=== PATIENT | male | born 1975 | race Caucasian/White ===

== ENCOUNTER 2022-10-19 13:30 | Outpatient (RCR) | payer BC, SELFPAY ==
[2022-10-18] MEDS: ERTAPENEM 1 GM in 0.9 % SODIUM CHLORIDE Mini-bag 100 ML IVPB (13:28)
[2022-10-19 13:50] VITALS: BP 123/84; PULSE 91; RESP 16; TEMP 36.4; O2SAT 97
[2022-10-19] MEDS: ERTAPENEM 1 GM in 0.9 % SODIUM CHLORIDE Mini-bag 100 ML IVPB (14:12)
== END 2023-04-16 23:59 | disposition home or self-care (01) ==
LOC: CCIC 13:30
PROVIDERS: PCP Family Medicine; Referring Provider Family Medicine; Visit Provider Family Medicine
DX: K57.32 Diverticulitis of large intestine without perforation or abscess without bleeding (principal)
CPT/HCPCS: 96365; J1335

== ENCOUNTER 2024-11-26 11:23 | Emergency (ER) | payer BC, SELFPAY ==
--- OUTSIDE RECORDS SUMMARY | 2024-11-26 11:26 | XMS_ITS | Clinical Summary ---
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 For routine questions regarding patient records, call [phone] during business hours, M-F 8:00 AM - 5:00 PM Central Time. 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) Alcohol Remission 12/27/2017 Fatty Liver 12/27/2017 Cholecystectomy Laparoscopic Status Post 018 Social History Tobacco Use Types Packs/Day Years Used Date Smoking Tobacco: Former Smokeless Tobacco: Current Chew Alcohol Use Standard Drinks/Week Comments No 0 (1 standard drink = 0.6 oz pur e alcohol) Sex and Gender Information Value Date Recorded Sex Assigned at Not on file Legal Sex Male 3:28 PM CDT Gender Identity Male 10/31/2017 12:42 PM CDT Sexual Orientation Straight 10/31/2017 12 :42 PM CDT Last Filed Vital Signs Vital Sign Reading Time Taken Comments Blood Pressure 127/80 01/03/2018 12:49 PM CDT Pulse 72 01/03/2018 12:48 PM CDT Temperature 36.6 C (97.9 F) 01/03/2018 12:48 PM CDT Respiratory Rate 16 01/03/2018 12:49 PM CDT Oxygen Saturation 98% 01/03/2018 12:48 PM CDT Inhaled Oxygen Concentration - - Weight 129 kg (285 lb 4.4 oz) 12/27/2017 3:15 PM CDT Height 176.6 cm (5' 9.53) 12/27/2017 3:15 PM CD T Body Mass Index 41.49 12/27/2017 3:15 PM CDT Plan of Treatment Health Maintenance Due Date Last Done Comments CT Colonography 1976 Cologuard 1976 Colonoscopy 1976 Colorectal Cancer Screening 1976 FIT 1976 HIV Screening 1976 Hepatitis C Screening 1976 Lipid (Cholesterol) Screening 1976 Hepatitis B Vaccines (1 of 3 - 19+ 3-dose series) 01/14/1995 Pneumococcal vaccine (0-49 years) (2 of 2 - PCV) 11/20/2017 11/20/2016 DTaP,Tdap,and Td Vaccines (2 - Td or Tdap) 02/11/2018 02/12/2008 Fasting Glucose for Diabetes Screening 01/02/2021 01/02/2018, 01/02/2018 COVID-19 Vaccine (3 - 2023-2 5 season) 2024 02/12/2021, 2021 Depression Screening (Annual PHQ-2) 05/22/2024 Influenza Vaccine (#1) 2025 , 05/30/2013, 05/09/2010 IPV Vaccines Aged Out No longer eligi ble based on patient's age to complete this topic Medical Devices Implanted Type Area Respiratory Coordinator Device Identifier Shelf Expiration Date Model / Serial / Lot Shoulder Implant Shoulder Implant Shoulder Procedures Procedure Name Priority Date/Time Associated Diagnosis Comments HEMOGLOBIN A1C, B Routine 01/02/2018 11: 48 AM CDT Pain Epigastric from Last 3 Months or Most Recently Relevant to Health Maintenance Results * Hemoglobin A1c (01/02/2018 11:48 AM CDT) Hemoglobin A1c, B 5.1 4.0 - 5.6 % 01/02/2018 1:04 PM CDT [facility] Blood (Blood, Venous) 01/02/2018 11:48 AM CDT 01/02/2018 12:07 PM CDT us Bharat Wright M.D. LAB BLOOD ADD-ON Final Resu lt [facility] [address] from Last 3 Months or Most Recently Relevant to Health Maintenance Insurance [employer]
--- OUTSIDE RECORDS SUMMARY | 2024-11-26 11:26 | XMS_ITS | Clinical Summary ---
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 Max acetaminophen dose: 4000mg in 24 hrs. Active Active Problems Problem Noted Date Diagnosed Date Sepsis 08/09/2020 Troponin level elevated 08/09/[address] scan, esophagus 08/09/2020 Overview (08/09/2020): Noted on CT scans in July 2020, stable from 2016 Alcohol dependence in remission 12/27/2017 Morbid obesity 12/27/2017 Pancreatitis, acute 12/27/2017 Fatty liver 12/27/2017 Diverticulitis of colon 12/27/2017 Acquired absence of other sp ecified parts of digestive tract 12/27/2017 Recurrent shoulder dislocation, left Immunizations Immunization Administration Dates Next Due Influenza, IIV3 (Age 6-35 mos) 05/30/2013 Influenza, IIV3 (Age >=3 years) 05/09/2010 Pneumococcal Poly,23-Valent (Pneumovax) 11/21/19 17 Tdap 02/12/2008 Family History Medical History Relation Name Comments Diverticulitis Maternal Grandmother Diverticulitis Mother Heart attack Paternal Grandmother Relation Name Status Comments Maternal Grandmother Mother Paternal Grandmother Social History Tobacco Use Types Packs/Day Years Used Date Smoking Tobacco: Unknown Smokeless Tobacco: Current Chew Tobacco Cessation:Ready to Q uit: No; Counseling Given: Yes Social Connections Answer Date Recorded Frequency of Communication with Friends and Fami ly Not on file 06/14/2021 Financial Resource Strain Answer Date R ecorded Difficulty of Paying Living Expenses Not on file 06/14/2021 Difficulty of Paying Living Expenses Not on file 06/14/2021 Sex and Gender Information Value Date Recorded Sex Assigned at Not on file Legal Sex Male 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 Gender Identity Not on file Sexual Orientation Not on file Obstetrics History Last Filed Vital Signs Vital Sign Reading Time Taken Comments Blood Pressure 155/94 06/14/2021 9:27 AM SENIOR ORACLE DATABASE DEVELOPER Pulse 94 06/14/2021 9:27 AM SENIOR ORACLE DATABASE DEVELOPER Temperature 36.7 C (98.1 F) 08/13/2020 8:24 AM CDT Respiratory Rate 16 08/13/2020 8:24 AM CDT Oxygen Saturation 96% 06/14/2021 9:27 AM SENIOR ORACLE DATABASE DEVELOPER Inhaled Oxygen Concentration - - Weight 129.8 kg (286 lb 3.2 oz) 06/14/2021 9:27 AM SENIOR ORACLE DATABASE DEVELOPER Height 177.8 cm (5' 10) 06/14/2021 9:27 AM SENIOR ORACLE DATABASE DEVELOPER Body Mass Index 41.07 06/14/2021 9:27 AM SENIOR ORACLE DATABASE DEVELOPER Plan of Treatment Health Maintenance Due Date Last Done Comments Depression screening for age 12+ 1988 HIV for age 15-65 01/14/1991 Hepatitis B series for 19+ ( 1 of 3 - 19+ 3-dose series) 01/14/1995 Tetanus booster 02/11/2018 02/12/2008 Colonoscopy through age 75 01/14/2021 Lipids for age 45-75 01/14/2021 BMI (ht and wt on same day) for age 18+ 06/14/2022 06/14/2021 COVID-19 vaccine series (2023- season) 2024 Influenza Vaccine (#1) 2025 4, 05/09/2010 Pneumococcal series for age 6-49 Aged Out 11/20/2016 No longer eligible b ased on patient's age to complete this topic Hepatitis C screening for ag e 18-79 Completed 08/12/2020 Procedures Procedure Name Priority Date/Time Associated Diagnosis Comments ACUTE HEPATITIS PANEL JACKELINE 08/12/2020 7:52 AM CDT from Last 3 Months or Most Recently Relevant to Health Maintenance Results * Acute hepatitis panel TODAY (08/12/2020 7:52 AM CDT) HEPATITIS C ANTIBODY Non-Reactive Non-Reactive 08/12/2020 4:11 PM CDT [facility] Comment:Antibodies to HCV no t detected; does not exclude the possibility of exposure to HCV. IGM ANTI HAV Non-Reactive Non-Reactive 08/13/19 4:11 PM CDT [facility] HBSAG Nonreactive Nonreactive 08/12/2020 4:11 PM CDT [facility] IGM ANTI HBC Non-Reactive Non-Reactive 08/13/19 4:11 PM CDT [facility] Blood BLOOD SPECIMEN / Unknown Venipuncture / Unknown 08/12/2020 7:52 AM CDT 08/12/2020 7:59 AM CDT Narrative [facility] - 08/12/2020 4:11 PM CDT Anti-HAV IgM not detected. Does not exclude the possibility of exposure to/or infection with HAV. Level of anti-HAV IgM may be below the cut-off in early infection. us Cornell Rivera MD SEND OUTS Final Result [facility] [address] [place] [address], [place] from Last 3 Months or Most Recently Relevant to Health Maintenance Insurance [employer] Advance Directives * Full Code (Latest Code Status on File) Date Activated Date Inactivated Comments 08/09/2020 1:58 PM 08/13/2020 2:46 PM Question Answer Comments Code Status Discussion: Discussed Care Teams Silverware Cleaner Relationship Specialty Start Date End Date Pcp, No . PCP - General 08/09/20
[2024-11-26 11:36] VITALS: BP 154/89; PULSE 87; RESP 20; TEMP 36.7; O2SAT 93; BMI 39.3
--- NOTE | 2024-11-26 12:57 | ED.GENADULT ---
HPI - General Adult General Date Seen: 11/26/24 Chief complaint: Shortness of Breath/Dyspnea Stated complaint: shortness of breath, tightness on chest, weak Time Seen by Provider: 11/26/24 12:42 History of Present Illness HPI narrative: 49 yo M presenting to the ER today for shortness of breath. He has been feeling short of breath for about 2 weeks but has more shortness of breath today. He says he just feels like he can not get enough air even though he has no trouble getting breath been out of his lungs. He is also generalized weak, unable to exercise. Trouble sleeping. He also feels tightness in his neck and throat. No cough. No fever. He has a past medical history of diverticulitis, seen here in the ER for that a couple of years ago. He has had symptoms of shortness of breath ongoing for the past 2 or 3 weeks and getting steadily worse over time. He is not having any chest pain really or pain with breathing but sometimes he just feels like he can not get enough air. In particular his breathing can be worse at night, but it is not always triggered by night or by supine position. He has also had just general fatigue, exercise intolerance. He has not had any swelling in his legs but he has noted a little bit of a brownish macular rash affecting both his distal shins and ankles for the past month or 2. At 1st he thought the rash might be a sunburn, but it is slowly spreading over time without sun exposure. No other rashes. Is not have any cough. No she needs nasal congestion. No sore throat. No fever or chills. No abdominal pain. He is not gaining or losing weight. No vomiting or diarrhea. Call swollen no black or bloody stools. No nosebleeds. He is not anticoagulated. He does travel a lot for work. Will give no other long-term immobility. No history of DVT or PE. Per the [facility] medical record through [employer] link I see that he has a past medical history elevated BMI, morbid obesity, pancreatitis due to gallstones, status post cholecystectomy in 2019, history of heavy alcohol use, in remission per doctor's notes from 2021, elevated troponin, sepsis, shoulder dislocation, fatty liver. He also reports a long history of GERD is even had previous off the snf dilatations. Most of his GERD symptoms have gone away since he stopped drinking alcohol a few years ago. He is no longer regularly on PPIs or other acid. He really does not feel like he has been having any of his previous ?GERD? symptoms recent. He tried taking acid medicine for a day but it did not change the breathing symptoms. He tried fasting for a day but that did not change the breathing symptoms. He also has a history of 1 panic attack. He notes that occurred several years ago when his was with her 3rd child. He does not have any reason for the call stressors or anxiety in his life. He has never needed long-term anxiety medications Related Data Home Medications ?Medication ?Instructions ?Recorded ?Confirmed Tylenol 10/17/22 ibuprofen 10/17/22 Allergies Allergy/AdvReac Type Severity Reaction Status Date / Time Latex, Natural Rubber Allergy Blister Verified 11/26/24 11:44 [facility] Social History Smoking Status: Never smoker Do you use any of these nicotine containing products: Smokeless Tobacco How often do you have a drink containing alcohol: 2-4 times a month How many standard drinks containing alcohol do you have on a typical day: 1 or 2 AUDIT-C Alcohol total score: 2 Non-prescribed substance use: denies use Exam Narrative: Exam Narrative: Constitutional: Appears well-developed and well-nourished. Alert. Conversant. Non toxic. HENT: Head: Atraumatic. Nose: Nose normal. Mouth/Throat: Oral mucosa is clear and moist. no trismus. Pharynx normal. Tonsils symmetric. No tonsillar enlargement, erythema, or exudate. Eyes: Conjunctivae normal. EOM normal. Pupils equal, round, and reactive to light. No scleral icterus. Neck: Normal range of motion. Neck supple. No tracheal deviation present. No JVD Cardiovascular: Normal rate, regular rhythm. No gallop. No friction rub. No murmur heard. Symmetric radial and PT artery pulses Pulmonary/Chest: Effort normal. No stridor. No respiratory distress. No wheezes. No rales. No rhonchi . No tenderness. Abdominal: Soft. No distension. No mass. No tenderness. No rebound. No guarding. Musculoskeletal: RUE: Normal range of motion. No tenderness. No deformity LUE: Normal range of motion. No tenderness. No deformity RLE: Normal range of motion. No edema. No tenderness. No deformity LLE: Normal range of motion. No edema. No tenderness. No deformity Neurological: Alert and oriented to person, place, and time. Normal strength. CN II-VII intact. No sensory deficit. GCS eye subscore is 4. GCS verbal subscore is 5. GCS motor subscore is 6. Normal coordination Skin: Skin is warm and dry. No rash noted. No pallor. Normal capillary refill. Psychiatric: Normal mood. Normal affect. Const: Vital Signs, click to edit/add: Vital Signs - 24 hr 11/26/24 11:36 11/26/24 13:25 11/26/24 15:50 Temperature 98.0 F Pulse Rate [Pulse Oximeter] 87 62 66 Respiratory Rate 20 20 16 Blood Pressure [Ri ght Upper Arm] 154/89 H 139/94 H 141/89 H Pulse Oximetry 93 97 96 Oxygen Delivery Me thod Room Air Room Air Room Air Course Vital Signs Vital signs: Initial Vital Signs Temperature 98.0 F 11/26/24 11:36 Temperature Source Temporal Artery Scan 11/26/24 11:36 Pulse Rate 87 11/26/24 11:36 Respiratory Rate 20 11/26/24 11:36 Blood Pressure 154/89 H 11/26/24 11:36 Blood Pressure Mean 110 H 11/26/24 11:36 Blood Pressure Position Sitting 11/26/24 11:36 Pulse Oximetry 93 11/26/24 11:36 Oxygen Delivery Method Room Air 11/26/24 11:36 Vital Signs Temperature 98.0 F 11/26/24 11:36 Pulse Rate 87 11/26/24 11:36 Respiratory Rate 20 11/26/24 11:36 Blood Pressure 154/89 H 11/26/24 11:36 Pulse Oximetry 93 11/26/24 11:36 Oxygen Delivery Method Room Air 11/26/24 11:36 Temperature 98.0 F 11/26/24 11:36 Pulse Rate 66 11/26/24 15:50 Respiratory Rate 16 11/26/24 15:50 Blood Pressure 141/89 H 11/26/24 15:50 Pulse Oximetry 96 11/26/24 15:50 Oxygen Delivery Method Room Air 11/26/24 15:[address] [facility] Narrative Medical decision making narrative: This patient presents to the ER today for evaluation of shortness of breath that has been occurring for the past 2 or 3 weeks. It is more prominent at night but does happen during the day as well and comes and goes in waves. Differential was broad. No evidence of palpitations, syncope or other cardiac dysrhythmia. We considered possible ACS, however workup with EKG and troponin is negative. HEART score is 1. Given time since onset of symptoms, I do not think the patient needs to be admitted for further sets of enzymes. EKG shows no evidence for pericarditis. Clinical presentation not suggestive of myocarditis. Chest x-ray shows no evidence for pneumonia, pneumothorax, pulmonary edema, pleural effusion, rib fracture, cardiomegaly. Mediastinum is normal on the x-ray. The patient has no ripping or tearing pain through to the back and has symmetric pulses on exam, no other acute neuro findings so I doubt aortic dissection. Risk of radiation and contrast exposure would outweigh the benefit of CT angiogram. We considered PE for this patient. Screening D-dimer is normal No wheezing or bronchospasm to suggest COPD/asthma. He is not anemic. No signs of lower extremity DVT. Patient notes that he has had a history of esophagitis and esophageal problems in the back. It is certainly possible that he could be having some reflux which is causing some burning in the back of his throat at night causing the squeezing feeling. He also notes in the past that he has had a panic attack. He denies any recent stressors. He wonders if anxiety could be contributing to his current symptoms. With reasonable clinical confidence, I think the patient is safe for outpatient follow up. Discussed return precautions. Questions answered. Patient voices comfort with the plan. Lab Data Labs: Lab Results 11/26/24 11/26/24 11/26/24 Range/Units 11:46 13:40 Unknown WBC 8.57 (4.50-11.00) K/uL RBC 5.16 (4.30-5.90) m/uL Hgb 16.4 (13.5-17.5) gm/dL Hct 47.2 (37.0-53.0) % MCV 92 (80-100) fL MCH 32 (26-34) pg MCHC 35 (32-36) gm/dL RDW Coeff of Lorraine 11.9 (11.5-15.5) % Plt Count 198 (140-440) K/uL Neut % (Auto) 77.2 H (42.0-72.0) % Lymph % (Auto) 13.1 L (20-44) % [place] % (Auto) 6.2 (0.0-11.0) % Eos % (Auto) 2.1 (0.0-7.0) % Baso % (Auto) 0.2 (0.0-3.0) % Neut # (Auto) 6.60 (1.7-7.0) K/uL Lymph # (Auto) 1.10 (0.90-2.90) K/uL [place] # (Auto) 0.50 (0.00-0.90) K/UL Eos # (Auto) 0.18 (0.00-0.50) K/uL Baso # (Auto) 0.02 (0.00-0.30) K/uL Abs Immat Gran (auto) 0.10 (0.00-0.30) K/uL Imm/Tot Granulo (auto) 1.2 % D-Dimer Quant (PE/DVT) 0.26 (0.00-0.50) ug/ml Sodium 138 (135-149) mmol/L Potassium 4.2 (3.6-5.1) mmol/L Chloride 101 (96-114) mmol/L Carbon Dioxide 28 (20-32) mmol/L Anion Gap 9 (7-15) mEq/L BUN 14 (5-24) mg/dL Creatinine 0.9 (0.5-1.5) mg/dL Estimated Creat Clear 100.38 Estimated GFR 105 ml/min Glucose 100 (60-115) mg/dL Calcium 9.7 (8.4-10.6) mg/dL Troponin I < 0.01 (0.01-0.04) ng/mL NT-Pro-B Natriuret Pep 70 (See Note) pg/mL Urine Color Yellow (Yellow) Urine Appearance Clear (Clear) Urine pH 6.0 (5.0-8.5) Ur Specific [place] 1.020 (1.000-1.030) Urine Protein Negative (Negative) Urine Glucose (UA) Negative (Negative) Urine Ketones Negative (Negative) Urine Blood Negative (Negative) Urine Nitrite Negative (Negative) Urine Bilirubin Negative (Negative) Urine Urobilinogen 0.2 (0.2-1.0) Ur Leukocyte Esterase Negative (Negative) Urine RBC 0-2 (0-2) Urine WBC 0-2 (0-5) Ur Squamous Epith Cells None (None-Few) Urine Bacteria None (None) SARS-CoV-2 (PCR) Negative SARS-CoV-2 (Negative) Influenza Type A (PCR) Negative PCR FLU A (Negative) Influenza Type B (PCR) Negative PCR FLU B (Negative) RSV (PCR) Negative PCR RSV (Negative) Discharge Plan Discharge Clinical Impression: Acute dyspnea Patient Disposition: Home, Self-Care Condition: Stable Instructions: Dyspnea (ED) Additional Instructions: As we discussed, so far your workup looks reassuring. We do not see any signs of heart attack, heart failure, pneumonia, fluid in your lungs, lung cancers under chest x-ray, or other life-threatening problems. It is very important for you to follow-up with her doctor within 1-2 weeks. Ask your doctor to consider getting an echocardiogram to look at your heart valves and the strength of your heart muscle as it beats. Please come back to the ER right away if you have worsening trouble breathing or other new concerning symptoms. Prescriptions: No Action Tylenol ibuprofen Follow Up/Referrals: Luis Reza MD [Staff Physician, Emergency Medicine] Stand Alone Forms: [facility] Info Instructions
[2024-11-26 13:00] LABS: PCR FLU A Negative PCR FLU A (Negative); PCR FLU B Negative PCR FLU B (Negative); PCR RSV Negative PCR RSV (Negative); SARS PCR* Negative SARS-CoV-2 (Negative)
[2024-11-26 13:25] VITALS: BP 139/94; PULSE 62; RESP 20; O2SAT 97
[2024-11-26 14:12] LABS: Appearance Urine Clear (Clear)
[2024-11-26 14:24] LABS: D Dimer Quantitative* 0.26 ug/ml (0.00-0.50)
--- NOTE | 2024-11-26 15:09 | CRLHL7_ITS ---
For Patients: As a result of the Century Cures Act, medical imaging exams and procedure reports are released immediately into your electronic medical record. You may view this report before your referring provider. If you have questions, please contact your health care provider. Indication: Dyspnea Technique: Chest 2 views Comparison: Chest x-ray 08/09/2020 Findings/Impression: Cardiovascular and mediastinum: Normal heart size with mild aortic tortuosity. Lungs and pleural spaces: No pleural effusion or pneumothorax. Mild bronchial wall thickening which can be seen in bronchitis or reactive airways disease. Bones and soft tissues: No significant findings. Dictated by Rob Ortega MD @ 11/26/2024 3:39:18 PM (Electronically Signed)
[2024-11-26 15:25] LABS: Chloride* 101 mmol/L (96-114); Sodium* 138 mmol/L (135-149)
[2024-11-26 15:26] LABS: Potassium* 4.2 mmol/L (3.6-5.1)
[2024-11-26 15:27] LABS: Hematocrit 47.2 % (37.0-53.0); Hemoglobin* 16.4 gm/dL (13.5-17.5); Immature Granulocytes Abs Auto 0.10 K/uL (0.00-0.30); Immature Granulocytes Pct Auto 1.2 %; Mean Corpuscular HGB Conc 35 gm/dL (32-36); Mean Corpuscular Hemoglobin 32 pg (26-34); Mean Corpuscular Volume 92 fL (80-100); RDW Coefficient of Variation % 11.9 % (11.5-15.5); Red Blood Count 5.16 m/uL (4.30-5.90); White Blood Count* 8.57 K/uL (4.50-11.00)
[2024-11-26 15:29] LABS: Anion Gap 9 mEq/L (7-15); Blood Urea Nitrogen* 14 mg/dL (5-24); Calcium* 9.7 mg/dL (8.4-10.6); Carbon Dioxide* 28 mmol/L (20-32); Creatinine* 0.9 mg/dL (0.5-1.5); Est. Creatinine Clearance* 100.38; Estimated Glomerular Filt Rate 105 ml/min; Glucose* 100 mg/dL (60-115)
[2024-11-26 15:45] LABS: Lymphocytes Absolute Auto 1.10 K/uL (0.90-2.90); NT Pro B Type NatriureticPept* 70 pg/mL (See Note); Slide Review Reflex No
[2024-11-26 15:50] VITALS: BP 141/89; PULSE 66; RESP 16; O2SAT 96
== END 2024-11-26 16:04 | disposition home or self-care (01) ==
PROVIDERS: Emergency Provider Emergency Medicine
DX: R06.00 Dyspnea, unspecified (principal); R53.83 Other fatigue; R21 Rash and other nonspecific skin eruption
CPT/HCPCS: 36415; 71046; 80048; 81001; 83880; 84484; 85025; 85379; 87631; 99283; 99284